=== PATIENT | female | born 1940 | race Caucasian/White ===

== ENCOUNTER 2016-05-05 14:26 | Emergency (ER) | payer MEDICARE, OTHER ==
[~2016-05-05] VITALS: Ht 147.3 cm; Wt 42.0 kg
[~2016-05-05 14:26] MED LIST: AMLO-145 PO; GLIM2TAB PO; LEVO50TA74 PO; METF500T4 PO; METO25TA7 PO
[2016-05-05] MEDS ORDERED: SOD CHLORIDE 0.9% 1,000 ML IV STA (14:42)
[2016-05-05 14:48] VITALS: Ht 147.3 cm; Wt 42.0 kg
[2016-05-05] MEDS ORDERED: DIPHTH/TET/ACEL PERTUSS (ADULT) 0.5 ML VIAL IM* ONE (15:00)
--- NOTE | 2016-05-05 15:46 | RADRPT ---
PROCEDURE: XR Chest. CLINICAL INDICATION: Trauma. Chest pain. TECHNIQUE: Single frontal chest x-ray. COMPARISON: 07/10/2015 FINDINGS: The lungs are clear of acute infiltrates, edema, effusions, or masses.. The cardiomediastinal silho uette is unremarkable. The osseous structures are intact. There is mild dextroscoliosis of the thor acic spine. IMPRESSION: No acute cardiopulmonary disease. RPTAT: GG .Bertram Bernal MD, MD Date Time Electronically viewed and signed by .Bertram Bernal MD, on 05/05/2016 15:46 .L/
--- NOTE | 2016-05-05 16:18 | RADRPT ---
PROCEDURE: XR Pelvis. CLINICAL INDICATION: Pelvic pain. TECHNIQUE: Single AP view of the pelvis was obtained. COMPARISON: 11/14/2012 FINDINGS: The bilateral hip joints are within normal limits bilaterally. No acute displaced fracture or dislo cations are seen. Diffuse osteopenia is seen which limits evaluation of the bony detail. The soft t issue structures are intact. IMPRESSION: No acute displaced fracture or dislocation. RPTAT: HPNM Physician Marjorie Date Time Electronically viewed and signed by Kang Miller Physician on 05/05/2016 16:18 /
[2016-05-05 16:46] VITALS: TEMP 98.5
--- NOTE | 2016-05-05 16:53 | RADRPT ---
PROCEDURE: Noncontrast CT Head. CLINICAL INDICATION: Trauma. TECHNIQUE: Noncontrast CT of the head was obtained. The administered radiation dose was CTDI vol = 45.01 mGy, DLP = 720.23 mGy-cm. COMPARISON: Noncontrast CT of the head from June 30, 2015. FINDINGS: There is moderate generalized cerebral volume loss. There is mild to moderate periventricular hypoattenuation suggesting chronic microvascular ischemic changes. There are minimal vascular calcifications within the intracranial carotid arteries. There is no loss of eddy-white differentiation to suggest acute territorial infarction. There is no acute intracranial hemorrhage or extra-axial fluid collection. There is no mass effect. No midline shift is identified. The orbits are within normal limits. The paranasal sinuses are well aerated. No destructive osseous lesion is identified. There is a new 12 mm left frontal subcutaneous hematoma with associated laceration. IMPRESSION: 1. No acute intracranial hemorrhage or extra-axial fluid collection. 2. Moderate generalized cerebral volume loss. 3. Mild to moderate chronic microvascular ischemic changes. 4. New large left frontal subcutaneous hematoma with associated laceration. Further findings as detailed above. RPTAT: PP .Ronny Prasad MD, MD Date Time Electronically viewed and signed by .Ronny Prasad MD, MD on 05/05/2016 16:53 .F/
--- NOTE | 2016-05-05 17:03 | RADRPT ---
PROCEDURE: CT Cervical Spine without contrast. CLINICAL INDICATION: Trauma with neck pain TECHNIQUE: Using a GE [employer] [address] scanner, multiple axial images through the cervical s pine with coronal and sagittal reformats were obtained without contrast. The images were reviewed on a high-resolution PACS workstation. The CTDI vol is 21.97 mGy and the DLP is 347.2 mGy-cm. COMPARISON: No prior studies are available for comparison. FINDINGS: Exam is limited to the secondary to patient positioning. Diffuse osteopenia is seen. Trace retroli sthesis is seen at C4-5. Trace anterolisthesis at C5-6 is seen. The remainder of the cervical lord osis is maintained. There is normal height of the vertebral bodies. Multilevel endplate and uncovert ebral osteophytosis is seen. A lucent area is seen in the base of the occiput measuring 1.6 cm in si ze and is well circumscribed. The atlantoaxial joint demonstrates degenerative joint disease. There is no acute fracture or subluxation. No prevertebral or paravertebral soft tissue abnormality is s een. Mild disk height loss is seen posteriorly at C2-3 and C3-4. Mild to moderate posterior disk height loss is seen at C4-5. Posterior disk bulges are seen at C3-4 and C4-5. Posterior disk osteophyte c omplex is seen at C6-7. Multilevel foraminal stenosis is seen secondary to uncovertebral osteophytos is and facet arthropathy. Borderline narrowing of the central canal is seen from C2-3 to C4-5. A right thyroid lobe calcified nodule seen measuring 10 mm in size. Left apical scarring and pleura l thickening is seen. IMPRESSION: 1. Limited examination secondary to patient positioning. 2. No definite CT evidence of an acute fracture or subluxation of the cervical spine. 3. Multilevel discogenic disease and facet arthropathy of the cervical spine. 4. Trace retrolisthesis at C4-5 and anterolisthesis at C5-6. 5. Well circumscribed lucent lesion in the base of the occiput. RPTAT: HPNM Kang iMller, Physician Date Time Electronically viewed and signed by Kang Miller, Physician on 05/05/2016 17:02 /
[2016-05-05 17:05] LABS: BASOPHILS % 0.2 % (0.0-2.0); EOSINOPHILS # 0.1 10^3/ul (0.0-0.5); EOSINOPHILS % 0.4 % (0.0-7.0); HEMATOCRIT 33.7 % (37.0-47.0); HEMOGLOBIN 11.4 g/dl (12.0-16.0); LYMPHOCYTES # 1.6 10^3/ul (0.8-2.9); LYMPHOCYTES % 11.8 % (15.0-51.0); MEAN CORPUSCULAR HEMOGLOBIN 30.4 pg (29.0-33.0); MEAN CORPUSCULAR HGB CONC 33.8 g/dl (32.0-37.0); MEAN PLATELET VOLUME 7.8 fl (7.4-10.4); MONOCYTE # 0.7 10^3/ul (0.3-0.9); MONOCYTES % 5.1 % (0.0-11.0); NEUTROPHIL # 11.3 10^3/ul (1.6-7.5); NEUTROPHILS % 82.5 % (39.0-77.0); PLATELET COUNT 355 10^3/UL (140-440); RED BLOOD COUNT 3.75 10^6/ul (4.20-5.40); RED CELL DISTRIBUTION WIDTH 15.1 % (11.5-14.5); UNCORRECTED WBC 13.7 10^3/ul (4.8-10.8); WHITE BLOOD COUNT 13.7 10^3/ul (4.8-10.8)
[2016-05-05 17:07] LABS: CONDITION 1; LH ANALYZER COMMENTS 1
[2016-05-05 17:15] LABS: INR 1.01; PROTIME 13.3 Sec (12.2-14.2)
[2016-05-05 17:16] LABS: ALBUMIN 3.8 g/dl (3.3-4.9); CHLORIDE 102 mmol/L (97-110); SODIUM 138 mmol/L (135-144)
[2016-05-05 17:17] LABS: POTASSIUM 4.2 mmol/L (3.5-5.1)
[2016-05-05 17:19] LABS: ALANINE AMINOTRANSFERASE 20 IU/L (13-69); ALBUMIN/GLOBULIN RATIO 1.26; ALKALINE PHOSPHATASE 124 IU/L (42-121); ANION GAP 17 (8-16); ASPARTATE AMINO TRANSFERASE 19 IU/L (15-46); BLOOD UREA NITROGEN 22 mg/dl (7-20); CARBON DIOXIDE 23 mmol/L (21-31); CREATININE 0.67 mg/dl (0.44-1.00); GLUCOSE 202 mg/dl (70-220); TOTAL PROTEIN 6.8 g/dl (6.1-8.1)
[2016-05-05 17:20] LABS: CALCIUM 9.3 mg/dl (8.4-10.2)
[2016-05-05 17:37] LABS: TROPONIN-I < 0.012 ng/ml (0.00-0.12)
[2016-05-05] MEDS ORDERED: LIDOCAINE 1% (MDV) 20 ML INJ SC ONE (18:00)
[2016-05-05 18:22] LABS: ADD UMIC NO; URINE BILIRUBIN (Dip) NEGATIVE (NEGATIVE); URINE BLOOD (Dip) NEGATIVE (NEGATIVE); URINE COLOR LT. YELLOW (YELLOW); URINE KETONES (Dip) NEGATIVE (NEGATIVE); URINE LEUKOCYTE ESTERASE (Dip) NEGATIVE (NEGATIVE); URINE NITRITE (Dip) NEGATIVE (NEGATIVE); URINE TOTAL PROTEIN (Dip) NEGATIVE (NEGATIVE); URINE UROBILINOGEN (Dip) 0.2 E.U./dL (0.1-1.0)
[2016-05-05] MEDS ORDERED: ASPI81TA3 GTB (18:27)
[2016-05-05] MEDS ORDERED: LORA-441 GTB (18:28)
[2016-05-05] MEDS ORDERED: DOCU-159 GTB (18:29)
[2016-05-05] MEDS ORDERED: INSU100V3 IJ (18:33)
[2016-05-05] MEDS ORDERED: LANT3I SC (18:34)
[2016-05-05] MEDS ORDERED: QUET25TA26 GTB ×2 (18:36)
[2016-05-05] MEDS ORDERED: CEPH-443 PO (18:37)
[2016-05-05] MEDS ORDERED: SERT25TA GTB (18:44)
--- NOTE | 2016-05-05 18:54 | ERD ---
ER Documentation Chief Complaint Date/Time DATE: 05/05/16 TIME: 18:40 Chief Complaint FOREHEAD LACERATION S/P FALL TODAY AT 1300 HPI 75-year-old woman brought in by EMS from [facility] for fall off of her wheelchair. She sustained left periorbital contusion and a mid forehead laceration. The episode was witnessed there was no loss of consciousness and no complaints of chest pain or shortness of breath. Patient's daughter who was later at the bedside states Ms. Bender has been dehydrated lately and she suspects strongly that she has a urinary tract infection. There have been no fevers or chills, no vomiting or diarrhea. Patient was transported here by EMS without further complications. ROS All systems reviewed and are negative except as per history of present illness. Medications Home Meds Active Scripts Cephalexin* (Keflex*) 500 Mg Capsule, 500 MG PO TID for 5 Days, CAP Prov:SAMARA WARREN MD 05/05/16 Reported Medications Sertraline Hcl* (Zoloft*) 25 Mg Tablet, 37.5 MG GTB DAILY, #30 TAB 05/05/16 Quetiapine Fumarate* (Seroquel*) 25 Mg Tablet, 25 MG GTB HS, #30 TAB 05/05/16 Quetiapine Fumarate* (Seroquel*) 25 Mg Tablet, 12.5 MG GTB DAILY, #30 TAB 05/05/16 Insulin Glargine* (Lantus*) 100 Unit/Ml Soln, 8 UNIT SC QHS, #1 VIAL 05/05/16 Insulin Regular, Human (Humulin R) 100 Unit/1 Ml Vial, 100 UNIT IJ SLIDING SCALE , VIAL 0-150=0<70MG/DL INITATE HYPOGLYCEMIA PROTOCOL AND CALL ,FOR 150-200=2 UNITS, 201-250=4 UNITS, 251-300=6 UNITS, 301-350=8 UNITS, 351-399=10 UNITS, 400+=12 UNITS MORE THAN 400 CALL 05/05/16 Docusate Sodium* (Docusate Sodium*) 100 Mg Capsule, 100 MG GTB BID, #60 CAP 05/05/16 Lorazepam* (Ativan*) 0.5 Mg Tablet, 0.5 MG GTB DAILY Y for NEEDED, #30 TAB 05/05/16 Aspirin* (Aspirin* Chew) 81 Mg Tab.chew, 81 MG GTB DAILY, TAB.CHEW 05/05/16 Discontinued Reported Medications Glimepiride* (Glimepiride*) 2 Mg Tablet, 2 MG PO WITH LUNCH, TAB 07/26/14 Metformin* (Glucophage*) 500 Mg Tab, 500 MG PO BID, TAB 07/26/14 Levothyroxine Sodium* (Levothyroxine Sodium*) 50 Mcg Tablet, 50 MCG PO AC BREAKFAST, TAB 07/26/14 Metoprolol Succinate* (Toprol XL*) 25 Mg Tab.sr.24h, 25 MG PO DAILY, TAB 07/26/14 Amlodipine Besylate* (Amlodipine Besylate*) 5 Mg Tablet, 5 MG PO DAILY, TAB 07/26/14 Allergies Allergies: Coded Allergies: Penicillins (Verified Allergy, Unknown, 05/05/16) PMhx/Soc DNR, dysphagia, PEG tube, insomnia, anxiety, depression, diabetes mellitus, hypertension, hypothyroidism, lower extremity paralysis with contractures, bedbound state History of Surgery: No (Hysterectomy, Thyroid Surgery, Lumpectomy) Anesthesia Reaction: No Hx Neurological Disorder: Yes (mini Stroke) Hx Respiratory Disorders: No Hx Cardiac Disorders: Yes (HTN) Hx Psychiatric Problems: Yes (Anxiety-Depression, Dementia) Hx Alcohol Use: No Hx Substance Use: No Hx Tobacco Use: No Smoking Status: Never smoker FmHx Family History: No diabetes Physical Exam Vitals Vital Signs Date Time Temp Pulse Resp B/P Pulse Ox O2 Delivery O2 Flow Rate FiO2 05/05/16 18:30 109 23 146/96 92 Nasal Cannula 2.0 05/05/16 17:27 Nasal Cannula 2 05/05/16 16:46 98.5 103 12 184/96 98 Room Air 05/05/16 14:48 89.0 103 18 140/77 96 Physical Exam GENERAL: Well-developed, elderly chronically debilitated woman, appears dehydrated HEENT: Dry mucous membranes, 4 cm scalp over the mid forehead at the hairline with active bleeding, positive soft tissue contusion and ecchymosis to the left orbit, no cervical spine tenderness or step-off deformities, no goiter, no jaundice or icterus, extraocular movements intact without pain. No submandibular induration, and no pharyngeal erythema NEURO: Patient is nonverbal, eyes open, pupils equal round reactive to light, she is moving her upper extremities without difficulty, she has bilateral lower extremity paralysis and contractures CARDIAC: Regular rate and rhythm, no murmurs rubs or gallops LUNGS: Clear bilaterally no wheezing crackles or stridor ABDOMEN: Soft nontender, no guarding, no rigidity, no rebound, no psoas sign no obturator sign. Normoactive bowel sounds SKIN: Warm and dry to touch, 4 cm forehead laceration, skin is without ulcers EXTREMITIES: No clubbing cyanosis or edema, calves are bilaterally symmetrical, no Homans sign, no popliteal cord sign. Distal pulses equal and bilateral PSYCH: Normal affect without agitation or irritability Result Diagram: 05/05/16 1520 05/05/16 1520 Results 24 hrs Laboratory Tests Test 05/05/16 15:20 05/05/16 17:34 Alanine Aminotransferase (ALT/SGPT) 20IU/L Albumin 3.8g/dl Albumin/Globulin Ratio 1.26 Alkaline Phosphatase 124IU/L Anion Gap 17 Aspartate Amino Transf (AST/SGOT) 19IU/L Basophils # 0.010^3/ul Basophils % 0.2% Blood Morphology Comment Blood Urea Nitrogen 22mg/dl Calcium Level 9.3mg/dl Carbon Dioxide Level 23mmol/L Chloride Level 102mmol/L Creatinine 0.67mg/dl Direct Bilirubin 0.00mg/dl Eosinophils # 0.110^3/ul Eosinophils % 0.4% Globulin 3.00g/dl Glucose Level 202mg/dl Hematocrit 33.7% Hemoglobin 11.4g/dl INR International Normalized Ratio 1.01 Indirect Bilirubin 0.0mg/dl Lipase 183U/L Lymphocytes # 1.610^3/ul Lymphocytes % 11.8% Mean Corpuscular Hemoglobin 30.4pg Mean Corpuscular Hemoglobin Concent 33.8g/dl Mean Corpuscular Volume 90.0fl Mean Platelet Volume 7.8fl Monocytes # 0.710^3/ul Monocytes % 5.1% Neutrophils # 11.310^3/ul Neutrophils % 82.5% Nucleated Red Blood Cells # 0.010^3/ul Nucleated Red Blood Cells % 0.0/100WBC Platelet Count 37598^3/UL Potassium Level 4.2mmol/L Prothrombin Time 13.3Sec Prothrombin Time Ratio 1.0 Red Blood Count 3.7510^6/ul Red Cell Distribution Width 15.1% Sodium Level 138mmol/L Total Bilirubin 0.0mg/dl Total Protein 6.8g/dl Troponin I < 0.012ng/ml White Blood Count 13.710^3/ul Urine Bilirubin NEGATIVE Urine Clarity CLEAR Urine Color LT. YELLOW Urine Glucose 0.5%% Urine Hemoglobin NEGATIVE Urine Ketones NEGATIVE Urine Leukocyte Esterase NEGATIVE Urine Nitrite NEGATIVE Urine Specific [place] 1.020 Urine Total Protein NEGATIVE Urine Urobilinogen 0.2 E.U./dL Urine pH 6.0 Current Medications Medications (Trade) Dose Ordered Sig/Katie Route PRN Reason Start Time Stop Time Status Last Admin Dose Admin Diphtheria/ Tetanus/Acell Pertussis 0.5 ml 0.5 ml ONCE ONCE IM* 05/05/16 15:00 05/05/16 15:01 DC 05/05/16 19:09 Sodium Chloride (NS) 1,000 ml @ 1,000 mls/hr Q1H STAT IV 05/05/16 14:42 05/05/16 15:41 DC 05/05/16 17:25 Lidocaine (Xylocaine 1% (Mdv) 20 ml) 20 ml ONCE ONCE SC 05/05/16 18:00 05/05/16 18:01 DC Procedures/MDM IV line was established patient was placed on wood veneer taper rhythm strip revealed a sinus tachycardia at about 110 bpm with upright P and T waves. Patient was afebrile. For dehydration I administered 1 L normal saline intravenously, diphtheria tetanus toxoid was administered at 0.5 mL intramuscular injection. Procedure note: Site was inspected by me. Scalp laceration were copiously irrigated I applied lidocaine 1% of the laceration after anesthetic took effect I applied 3 4-0 Ethilon sutures across the scalp laceration, final length of the laceration was 4 cm. There is no residual bleeding. There is also a superficial linear abrasion over the left brow which will not hold sutures, it is extremely superficial and does not require them. Steri-Strips were applied over this linear abrasion. After copious irrigation antibiotic ointment and gauze dressing was applied to the scalp lacerations and abrasions. EKG performed, read by me revealed a sinus tachycardia 104 bpm, normal axis, narrow QS complex, no concerning ST elevations or depressions noted. X-ray Pelvis 1V Interpreted by me: Bones: No fracture Joints: No dislocation Foreign body: None Chest X-ray 1V Interpreted by me: Soft Tissue: No acute abnormalities Bones: No acute abnormalities Mediastinum/Cardiac Silhouette/Lungs: No acute abnormalities CT scan of the brain was performed, and it was negative for acute bleed mass or shift. CT scan of the cervical spine was performed is negative for acute fracture or dislocation. CBC revealed a mild leukocytosis of 14, electrolytes revealed dehydration with a BUN/creatinine of 22/0.7, liver function tests were normal, troponin was negative. Urine analysis was negative for infection although her daughter who is at the bedside states every time this is happened she is developed a urinary tract infection and is strongly insisting on antibiotics. Given her age and recent symptoms I do suspect she may have an early urinary tract infection and elected to treat her with oral antibiotics. Obtained a consultation with her primary care physician Dr. Newman. We spoke about the patient's presentation, symptomatology, imaging studies, and ED management today. He recommended outpatient management and found no indication at this time for admission. He also came by and spoke to the patient and her family members were at the bedside. Family members preferred outpatient management and discharge back to nursing facility. Differential diagnoses considered, included but not limited to acute coronary syndrome, pulmonary embolism, aortic dissection, abdominal aortic aneurysm, sepsis, stroke, meningitis, encephalitis, pneumonia, appendicitis, cholecystitis , bowel obstruction, pyelonephritis, nephrolithiasis, cystitis, as well as metabolic, hematologic, and electrolyte abnormalities. As well as abscess, cellulitis, fractures, and dislocations. Patient feels much better at this time, and vital signs are normal, symptoms have improved. I did give strict instructions to return to the ED if symptoms continue or worsen, patient will otherwise follow-up with primary care physician. Patient understood instructions and agreed to plan. Departure Diagnosis: Primary Impression: Fall Encounter type: initial encounter Qualified Code: W19.XXXA - Fall, initial encounter Additional Impressions: Scalp laceration Encounter type: initial encounter Qualified Code: S01.01XA - Scalp laceration, initial encounter Dehydration Periorbital contusion of left eye Encounter type: initial encounter Qualified Code: S05.12XA - Periorbital contusion of left eye, initial encounter Condition: Good Patient Instructions: Dehydration, Fall, Mechanical, Laceration, Scalp SAMARA WARREN MD May 05, 2016 18:53
[2016-05-05] MEDS ORDERED: SOD CHLORIDE 0.9% 1,000 ML IV ONE (20:00)
[2016-05-05] MEDS ORDERED: OXYCODONE/ACETAMINOPHEN (5/325) TAB PO ONE (20:30)
[2016-05-05] MEDS ORDERED: QUETIAPINE 100 MG TAB PO ONE (20:30)
[2016-05-05 21:35] VITALS: BP 137/68; PULSE 96; RESP 16
== END 2016-05-05 21:47 | disposition home or self-care (01) ==
LOC: E/R 14:26
DX: S01.01XA Laceration without foreign body of scalp, initial encounter (principal); E86.0 Dehydration; S05.12XA Contusion of eyeball and orbital tissues, left eye, initial encounter; I10 Essential (primary) hypertension; E11.9 Type 2 diabetes mellitus without complications; E03.9 Hypothyroidism, unspecified; W05.0XXA Fall from non-moving wheelchair, initial encounter; Y92.9 Unspecified place or not applicable; Z23 Encounter for immunization; Z79.84 Long term (current) use of oral hypoglycemic drugs; Z79.4 Long term (current) use of insulin; Z79.82 Long term (current) use of aspirin
CPT/HCPCS: 12002; 51702; 70450; 71010; 72125; 72170; 80053; 81003; 83690; 84484; 85025; 85610; 90471; 90715; 93005; 99285; J7030

== ENCOUNTER 2016-09-23 09:13 | Emergency (ER) | payer MEDICARE, OTHER ==
[~2016-09-23] VITALS: Wt 40.0 kg
[~2016-09-23 09:13] MED LIST changes: -AMLO-145 PO; +ASPI81TA3 GTB; +CEPH-443 PO; +DOCU-159 GTB; -GLIM2TAB PO; +INSU100V3 IJ; +LANT3I SC; -LEVO50TA74 PO; +LORA-441 GTB; -METF500T4 PO; -METO25TA7 PO; +QUET25TA26 GTB; +SERT25TA GTB
[2016-09-23] MEDS ORDERED: HYDR-906 PO (09:40)
[2016-09-23] MEDS ORDERED: DOCU-144 PO (09:40)
[2016-09-23] MEDS ORDERED: SERT25TA GTB (09:55)
[2016-09-23] MEDS ORDERED: QUET25TA26 GTB (09:56)
[2016-09-23] MEDS ORDERED: ACET325S GTB ×2 (09:58→09:59)
[2016-09-23] MEDS ORDERED: ZOLP5TAB GTB (09:59)
[2016-09-23] MEDS ORDERED: AMLO5TAB4 GTB (10:01)
[2016-09-23] MEDS ORDERED: SITA100T8 GTB (10:01)
[2016-09-23] MEDS ORDERED: METF1000 GTB (10:02)
[2016-09-23] MEDS ORDERED: METO25TA4 GTB (10:03)
[2016-09-23] MEDS ORDERED: MAGN400O4 GTB (10:04)
[2016-09-23] MEDS ORDERED: MULTI GTB (10:05)
[2016-09-23] MEDS ORDERED: OMEP20CA16 GTB (10:05)
[2016-09-23] MEDS ORDERED: TRAM-40 GTB (10:07)
[2016-09-23 10:41] VITALS: BP 127/58; PULSE 80; RESP 22
--- NOTE | 2016-09-23 11:18 | ERD ---
ER Documentation Chief Complaint Date/Time DATE: 09/23/16 TIME: 11:16 Chief Complaint left index finger bruising unk trauma. mild swelling no deformity HPI Patient is a 75-year-old female with dementia who presents with a left second finger fracture. Please note the history and physical exam is limited secondary to the patient's mental status at baseline. The patient was brought in by ambulance. She was sent by her doctor because yesterday and x-ray showed a left-sided second finger fracture. She has bruising and swelling. There was no witnessed fall. The patient is a DNR. She has no pain at this time and is not requesting pain medications. Upon review of old medical records the patient has multiple visits to the ER for various complaints. Her primary doctor is Dr. Newman. ROS All systems reviewed and are negative except as per history of present illness. Medications Home Meds Active Scripts Docusate Sodium* (Colace*) 100 Mg Capsule, 100 MG PO TID, #30 CAP Prov:TOMY RECINOS MD 09/23/16 Hydrocodone/Acetaminophen ([place] 5-325 Tablet) 1 Each Tablet, 1 TAB PO Q6H Y for PAIN, #7 TAB Prov:TOMY RECINOS MD 09/23/16 Reported Medications Tramadol Hcl* (Ultram*) 50 Mg Tablet, 50 MG GTB Q8 Y for PAIN LEVEL 4-10, TAB 09/23/16 Omeprazole* (Omeprazole*) 20 Mg Capsule.dr, 20 MG GTB DAILY, #30 CAP 09/23/16 Multivitamins* (Theragran*) 1 Tab Tab, 1 TAB GTB DAILY, TAB 09/23/16 Magnesium Hydroxide* (Milk Of Magnesia*) 400 Mg/5 Ml Oral.susp, 30 ML GTB DAILY Y for CONSTIPATION, ML 09/23/16 Metoprolol Tartrate* (Lopressor*) 25 Mg Tablet, 25 MG GTB BID, #60 TAB HOLD FOR SBP LOWER THAN 110 OR HR LOWER THAN 60 09/23/16 Metformin Hcl* (Metformin Hcl*) 1,000 Mg Tablet, 1000 MG GTB WITH BREAKFAST DINNE, #30 TAB 09/23/16 Sitagliptin* (Januvia*) 100 Mg Tablet, 100 MG GTB DAILY, #30 TAB 09/23/16 Amlodipine Besylate* (Norvasc*) 5 Mg Tablet, 5 MG GTB DAILY, TAB HOLD FOR SBP LOWER THAN 110 OR HR LOWER THAN 60 09/23/16 Zolpidem Tartrate* (Ambien*) 5 Mg Tablet, 5 MG GTB QHS Y for INSOMNIA, #30 TAB 09/23/16 Acetaminophen* (Acetaminophen* Susp) 325 Mg/10.15 Ml Solution, 650 MG GTB Q6 Y for FEVER GREATER THAN 100.6, ML 09/23/16 Acetaminophen* (Acetaminophen* Susp) 325 Mg/10.15 Ml Solution, 650 MG GTB Q6 Y for PAIN LEVEL 1-3, ML 09/23/16 Quetiapine Fumarate* (Seroquel*) 25 Mg Tablet, 12.5 MG GTB QAM, #30 TAB 09/23/16 Sertraline Hcl* (Zoloft*) 25 Mg Tablet, 25 MG GTB DAILY, #30 TAB 09/23/16 Quetiapine Fumarate* (Seroquel*) 25 Mg Tablet, 12.5 MG GTB DAILY, #30 TAB 05/05/16 Insulin Glargine* (Lantus*) 100 Unit/Ml Soln, 8 UNIT SC QHS, #1 VIAL 05/05/16 Insulin Regular, Human (Humulin R) 100 Unit/1 Ml Vial, 100 UNIT IJ SLIDING SCALE , VIAL 0-150=0<70MG/DL INITATE HYPOGLYCEMIA PROTOCOL AND CALL ,FOR 150-200=2 UNITS, 201-250=4 UNITS, 251-300=6 UNITS, 301-350=8 UNITS, 351-399=10 UNITS, 400+=12 UNITS MORE THAN 400 CALL 05/05/16 Docusate Sodium* (Docusate Sodium*) 100 Mg Capsule, 100 MG GTB BID, #60 CAP 05/05/16 Lorazepam* (Ativan*) 0.5 Mg Tablet, 0.5 MG GTB DAILY Y for NEEDED, #30 TAB 05/05/16 Aspirin* (Aspirin* Chew) 81 Mg Tab.chew, 81 MG GTB DAILY, TAB.CHEW 05/05/16 Discontinued Reported Medications Sertraline Hcl* (Zoloft*) 25 Mg Tablet, 37.5 MG GTB DAILY, #30 TAB 05/05/16 Quetiapine Fumarate* (Seroquel*) 25 Mg Tablet, 25 MG GTB HS, #30 TAB 05/05/16 Discontinued Scripts Cephalexin* (Keflex*) 500 Mg Capsule, 500 MG PO TID for 5 Days, CAP Prov:SAMARA WARREN MD 05/05/16 Allergies Allergies: Coded Allergies: Penicillins (Verified Allergy, Unknown, 09/23/16) PMhx/Soc History of Surgery: No (Hysterectomy, Thyroid Surgery, Lumpectomy) Anesthesia Reaction: No Hx Neurological Disorder: Yes (mini Stroke) Hx Respiratory Disorders: No Hx Cardiac Disorders: Yes (HTN) Hx Psychiatric Problems: Yes (Anxiety-Depression, Dementia) Hx Alcohol Use: No Hx Substance Use: No Hx Tobacco Use: No FmHx Unable to obtain Physical Exam Vitals Vital Signs Date Time Temp Pulse Resp B/P Pulse Ox O2 Delivery O2 Flow Rate FiO2 09/23/16 10:41 80 22 127/58 99 09/23/16 09:20 97.5 74 20 131/74 98 Physical Exam Const: No acute distress Head: Atraumatic Eyes: Normal Conjunctiva ENT: Normal External Ears, Nose and Mouth. Neck: Full range of motion..~ No meningismus. Resp: Clear to auscultation bilaterally Cardio: Regular rate and rhythm, no murmurs Abd: Soft, non tender, non distended. Normal bowel sounds Skin: Bruising the left second finger Back: No midline or flank tenderness Ext: Bruising and swelling to left second finger Neur: Awake but demented Procedures/MDM Splint Note Type: Metal splint Location: Left second finger Indication: Finger fracture Splint Assessment: Neurovascularly intact post splint placement with good fit. Patient is a 75-year-old female who presents with a left-sided second finger fracture. The patient came with an x-ray report showing second finger fracture without dislocation or displacement. A splint was placed in the emergency department and this would be definitive treatment. She will likely need 6-8 weeks for healing. I called Dr. Newman to discuss the plan of care but there was no call back. Therefore the patient will be discharged back to the nursing facility where she came from for further treatment and can see orthopedic surgery and consultation if requested by Dr. Newman. I do not believe the patient will require surgical fixation. I believe outpatient management is appropriate. Departure Diagnosis: Primary Impression: Finger fracture Encounter type: initial encounter Finger: index finger Fracture type: closed Phalanx: unspecified phalanx Fracture alignment: nondisplaced Laterality: left Qualified Code: S62.601A - Closed nondisplaced fracture of phalanx of left index finger, unspecified phalanx, initial encounter Condition: Fair Patient Instructions: Fracture, Finger (Closed) Referrals: CLARENCE DAY MD Additional Instructions: SPECIALIST: YOU HAVE A MEDICAL CONDITION WHICH REQUIRES YOU TO SEE A SPECIALIST WITHIN THE NEXT 1-2 DAYS. PLEASE FOLLOW UP WITH YOUR PRIMARY PHYSICIAN FOR REFFERAL.IF YOU DO NOT HAVE A PRIMARY CARE PHYSICIAN AND/OR YOU CAN NOT AFFORD TO SEE A PHYSICIAN THE FOLLOWING RESOURCES HAVE BEEN SUPPLIED TO YOU. IT IS YOUR RESPONSIBILITY TO BE SEEN BY THE SPECIALIST TOMY RECINOS MD Sep 23, 2016 11:18
== END 2016-09-23 11:12 | disposition home or self-care (01) ==
LOC: E/R 09:13
DX: S62.601A Fracture of unspecified phalanx of left index finger, initial encounter for closed fracture (principal); R40.2222 Coma scale, best verbal response, incomprehensible words, at arrival to emergency department; I10 Essential (primary) hypertension; R40.2352 Coma scale, best motor response, localizes pain, at arrival to emergency department; R40.2142 Coma scale, eyes open, spontaneous, at arrival to emergency department; X58.XXXA Exposure to other specified factors, initial encounter; Y92.9 Unspecified place or not applicable; Z79.84 Long term (current) use of oral hypoglycemic drugs; Z79.4 Long term (current) use of insulin; Z79.82 Long term (current) use of aspirin

== ENCOUNTER 2017-02-03 13:16 | Emergency (ER) | payer MEDICARE, OTHER ==
[~2017-02-03] VITALS: Ht 157.5 cm; Wt 65.0 kg
[~2017-02-03 13:16] MED LIST changes: +ACET325S GTB; +AMLO5TAB4 GTB; -CEPH-443 PO; +DOCU-144 PO; +HYDR-906 PO; +MAGN400O4 GTB; +METF1000 GTB; +METO25TA4 GTB; +MULTI GTB; +OMEP20CA16 GTB; +SITA100T8 GTB; +TRAM-40 GTB; +ZOLP5TAB GTB
[2017-02-03 13:19] VITALS: Ht 157.5 cm; Wt 65.0 kg
--- NOTE | 2017-02-03 13:30 | ERD ---
ER Documentation Chief Complaint Chief Complaint CLOGGED G-TUBE, NEEDS REPLACEMENT HPI The patient is a 76-year-old female, presenting to the ER because of nonfunctioning G-tube. She is unable to provide any history, the history is obtained from the caregiver and medical record. Past medical history: Hypertension, anxiety, depression, dementia, dysphagia, encephalopathy, diabetes mellitus Past surgical history: G-tube Social history/review of system: Unable to obtain due to her condition ROS Unable to obtain due to her condition Medications Home Meds Active Scripts Docusate Sodium* (Colace*) 100 Mg Capsule, 100 MG PO TID, #30 CAP Prov:TOMY RECINOS MD 09/23/16 Hydrocodone/Acetaminophen (Ranson 5-325 Tablet) 1 Each Tablet, 1 TAB PO Q6H Y for PAIN, #7 TAB Prov:TOMY RECINOS MD 09/23/16 Reported Medications Tramadol Hcl* (Ultram*) 50 Mg Tablet, 50 MG GTB Q8 Y for PAIN LEVEL 4-10, TAB 09/23/16 Omeprazole* (Omeprazole*) 20 Mg Capsule.dr, 20 MG GTB DAILY, #30 CAP 09/23/16 Multivitamins* (Theragran*) 1 Tab Tab, 1 TAB GTB DAILY, TAB 09/23/16 Magnesium Hydroxide* (Milk Of Magnesia*) 400 Mg/5 Ml Oral.susp, 30 ML GTB DAILY Y for CONSTIPATION, ML 09/23/16 Metoprolol Tartrate* (Lopressor*) 25 Mg Tablet, 25 MG GTB BID, #60 TAB HOLD FOR SBP LOWER THAN 110 OR HR LOWER THAN 60 09/23/16 Metformin Hcl* (Metformin Hcl*) 1,000 Mg Tablet, 1000 MG GTB WITH BREAKFAST DINNE, #30 TAB 09/23/16 Sitagliptin* (Januvia*) 100 Mg Tablet, 100 MG GTB DAILY, #30 TAB 09/23/16 Amlodipine Besylate* (Norvasc*) 5 Mg Tablet, 5 MG GTB DAILY, TAB HOLD FOR SBP LOWER THAN 110 OR HR LOWER THAN 60 09/23/16 Zolpidem Tartrate* (Ambien*) 5 Mg Tablet, 5 MG GTB QHS Y for INSOMNIA, #30 TAB 09/23/16 Acetaminophen* (Acetaminophen* Susp) 325 Mg/10.15 Ml Solution, 650 MG GTB Q6 Y for FEVER GREATER THAN 100.6, ML 09/23/16 Acetaminophen* (Acetaminophen* Susp) 325 Mg/10.15 Ml Solution, 650 MG GTB Q6 Y for PAIN LEVEL 1-3, ML 09/23/16 Quetiapine Fumarate* (Seroquel*) 25 Mg Tablet, 12.5 MG GTB QAM, #30 TAB 09/23/16 Sertraline Hcl* (Zoloft*) 25 Mg Tablet, 25 MG GTB DAILY, #30 TAB 09/23/16 Quetiapine Fumarate* (Seroquel*) 25 Mg Tablet, 12.5 MG GTB DAILY, #30 TAB 05/05/16 Insulin Glargine* (Lantus*) 100 Unit/Ml Soln, 8 UNIT SC QHS, #1 VIAL 05/05/16 Insulin Regular, Human (Humulin R) 100 Unit/1 Ml Vial, 100 UNIT IJ SLIDING SCALE , VIAL 0-150=0<70MG/DL INITATE HYPOGLYCEMIA PROTOCOL AND CALL MD,FOR 150-200=2 UNITS, 201-250=4 UNITS, 251-300=6 UNITS, 301-350=8 UNITS, 351-399=10 UNITS, 400+=12 UNITS MORE THAN 400 CALL 05/05/16 Docusate Sodium* (Docusate Sodium*) 100 Mg Capsule, 100 MG GTB BID, #60 CAP 05/05/16 Lorazepam* (Ativan*) 0.5 Mg Tablet, 0.5 MG GTB DAILY Y for NEEDED, #30 TAB 05/05/16 Aspirin* (Aspirin* Chew) 81 Mg Tab.chew, 81 MG GTB DAILY, TAB.CHEW 05/05/16 Allergies Allergies: Coded Allergies: Penicillins (Verified Allergy, Unknown, 09/23/16) PMhx/Soc History of Surgery: No (Hysterectomy, Thyroid Surgery, Lumpectomy) Anesthesia Reaction: No Hx Neurological Disorder: Yes (mini Stroke) Hx Respiratory Disorders: No Hx Cardiac Disorders: Yes (HTN) Hx Psychiatric Problems: Yes (Anxiety-Depression, Dementia) Hx Alcohol Use: No Hx Substance Use: No Hx Tobacco Use: No Physical Exam Vitals Vital Signs Date Time Temp Pulse Resp B/P Pulse Ox O2 Delivery O2 Flow Rate FiO2 02/03/17 13:19 98.3 91 16 131/63 96 Physical Exam Const: No acute distress. Head: Atraumatic. Eyes: Normal Conjunctiva. ENT: Normal External Ears, Nose and Mouth. Neck: Full range of motion. No meningismus. Resp: Clear to auscultation bilaterally. Cardio: Regular rate and rhythm. Abd: Soft, non distended, normal bowel sounds,Nonfunctioning G-tube. Skin: No petechiae or rashes. Back: No midline or flank tenderness. Ext: No cyanosis, or edema. Neur: Awake and alert. No focal deficit Psych: Normal Mood and Affect. Results 24 hrs Current Medications Medications (Trade) Dose Ordered Sig/Katie Route PRN Reason Start Time Stop Time Status Last Admin Dose Admin Iohexol (Omnipaque 350mg/ ml) 50 ml STK-MED ONCE .ROUTE 02/03/17 14:24 02/03/17 16:17 DC Procedures/MDM MEDICAL MAKING DECISION: The patient is a 76-year-old female, presenting with acute nonfunctioning G-tube. It was replaced with any difficulty. The differential diagnoses considered include but are not limited to cellulitis , cholelithiasis, cholecystitis, cystitis, pancreatitis, hepatitis, gastritis, peptic ulcer disease, gastric ulcer, appendicitis, diverticulitis, cholangitis, choledocholithiasis, partial small bowel obstruction. . . Procedure: G-tube replacement The old G-tube ballon was deflated, removed and replaced with a new treated with any difficulty. The new Gtube baloon was inflated with 7 cc of sterile water. The stopper was moved close to the skin. [place] [id number] Radiology Main Line: [phone] DIAGNOSTIC IMAGING REPORT Patient: MINNIE SERVIN : 1940 Age: 76 Sex: F [id number] DOS: 02/03/17 1352 Ordering MD: JUNE BALDWIN MD Location: E/R Room/Bed: PROCEDURE: XR Abdomen. CLINICAL INDICATION: NG tube replacement. Contrast injection. TECHNIQUE: AP abdomen x-ray. COMPARISON: 07/02/2015 FINDINGS: Lung bases are clear. Anterior to the over the mid abdomen. Contrast from tube injection appears within the stomach with a hiatal hernia and small bowel. Contrast adjacent to the duodenum may be within the gallbladder or represent a duodenal diverticulum. Air and stool throughout the colon. No evidence of free air. IMPRESSION: Enteric tube tip over the mid abdomen. Contrast of the stomach with a hiatal hernia. Contrast within the small bowel. Possible duodenal diverticulum. RPTAT:AAJJ Physician Smith Date Time Electronically viewed and signed by Neptali Meadows Physician on 02/03/2017 16 :14 MH/ CC: JUNE BALDWIN MD Departure Diagnosis: Primary Impression: Encounter for feeding tube placement Condition: Good Comments I discussed the findings with the patient. I advised the patient to follow-up with the primary physician in about 1-2 days, sooner if needed and return if any concern. Disclaimer: Inadvertent spelling and grammatical errors are likely due to EHR/ dictation software use and do not reflect on the overall quality of patient care. Also, please note that the electronic time recorded on this note does not necessarily reflect the actual time of the patient encounter. JUNE BALDWIN MD Feb 03, 2017 13:30
[2017-02-03] MEDS ORDERED: IOHEXOL 350MG/ML 50 ML BTL ONE (14:24)
--- NOTE | 2017-02-03 16:15 | RADRPT ---
PROCEDURE: XR Abdomen. CLINICAL INDICATION: NG tube replacement. Contrast injection. TECHNIQUE: AP abdomen x-ray. COMPARISON: 07/02/2015 FINDINGS: Lung bases are clear. Anterior to the over the mid abdomen. Contrast from tube injection appears wit hin the stomach with a hiatal hernia and small bowel. Contrast adjacent to the duodenum may be withi n the gallbladder or represent a duodenal diverticulum. Air and stool throughout the colon. No evide nce of free air. IMPRESSION: Enteric tube tip over the mid abdomen. Contrast of the stomach with a hiatal hernia. Contrast within the small bowel. Possible duodenal diverticulum. RPTAT:AAJJ Physician Smith Date Time Electronically viewed and signed by Physician Smith on 02/03/2017 16:14 /
== END 2017-02-03 14:52 | disposition home or self-care (01) ==
LOC: E/R 13:16
DX: K94.23 Gastrostomy malfunction (principal); I10 Essential (primary) hypertension; E11.9 Type 2 diabetes mellitus without complications; Z79.4 Long term (current) use of insulin; Z79.82 Long term (current) use of aspirin; Z79.84 Long term (current) use of oral hypoglycemic drugs
CPT/HCPCS: 43760; 74000; 99284; Q9967

== ENCOUNTER 2017-04-14 16:52 | Inpatient (IN) | END 2017-04-20 16:50 | disposition EXP | DRG 871 ==